=== PATIENT | male | born 1955 | race Caucasian/White ===

== ENCOUNTER 2024-09-18 19:36 | Emergency (ER) | payer OTHER, SELFPAY ==
[2024-09-18 19:39] VITALS: BP 140/88; PULSE 121; RESP 18; TEMP 36.9; O2SAT 94; BMI 23.4
[2024-09-18 23:56] LABS: Basophils # 0.1 10^3/uL (0.0-0.1); Basophils % 0.6 %; Bilirubin Urine Negative (Negative); Blood Urine 1+ (Negative); Eosinophils # 0.1 10^3/uL (0.0-0.8); Glucose Urine UA Negative (Normal); Hematocrit 51.2 % (37-53); Ketones Urine Trace (Negative); Leukocyte Esterase Urine 3+ (Negative); Lymphocytes # 1.9 10^3/uL (0.8-4.8); Mean Corpuscular HGB Conc 32.4 g/dL (30-55); Mean Corpuscular Volume 92.6 fl (82-101); Mean Platelet Volume 10.8 fL (7.4-10.4); Monocytes # 1.1 10^3/uL (0.2-0.9); Monocytes % 12.6 %; Neutrophils # 5.47 10^3/uL (1.8-7.7); Neutrophils % 63.5 %; Nitrate Urine Positive (Negative); Nucleated Red Blood Cells % 0 %; Platelet Count 204 10^3/cmm (157-399); Protein Urine 1+ (Negative); Red Blood Count 5.53 10^6/uL (3.85-5.65); Red Cell Distribution Width 11.9 % (12.1-15.1); Specific Gravity, Urine 1.022 (1.005-1.030); Urine Appearance Cloudy (CLEAR); Urine Color Dark Yellow (Yellow); White Blood Count 8.63 10^3/uL (3.29-11.43); pH Urine 5.5 (5-7)
[2024-09-19 00:03] LABS: Add Urine Microscopic? YES; Bacteria Urine 4+ /hpf; RBC Urine 0-2 /hpf (0-2); Squamous Epithelial Cell Urine 0-5 /hpf (0-5); WBC Urine >100 /hpf (0-5)
--- NOTE | 2024-09-19 00:44 | ED_ITS ---
HPI - Male Genitourinary 2 General: Chief complaint: Urogenital-Male Stated complaint: Luciano patient burn when pee Time Seen by Provider: 09/18/24 23:38 History of Present Illness: 69-year-old [facility] He has a history of urosepsis in the past. He has had 3 days of dysuria, frequency, and urgency. No fever. No vomiting. No belly pain. He states that only a bit of urine comes out. He has some stinging at his urethral meatus. Related Data Previous Rx's ?Medication ?Instructions ?Recorded cefdinir 300 mg capsule 300 mg PO BID #14 caps 09/19 Allergies Allergy/AdvReac Type Severity Reaction Status Date / Time No Known Allergies Allergy Verified 09/18/24 19:47 Physical Exam 2 Const: COMMON NORMALS: no acute distress GENERAL APPEARANCE: cooperative; not ill appearing and not frail appearing HENMT: COMMON NORMALS: normocephalic, atraumatic and Normal external nose present HEAD & SCALP: normocephalic and atraumatic FACE & SINUS: normal facial exam and face symmetric NOSE: Normal external nose present Eye: COMMON NORMALS: Equal, round and reactive pupils present and EOMs intact bilaterally PUPIL: Yes Equal, round and reactive pupils present Neck/C-Spine: GENERAL: Yes trachea midline Chest: CHEST: Yes Symmetrical chest wall rise Resp: COMMON NORMALS: normal respiratory effort, No retractions, No use of accessory muscles and clear to auscultation bilaterally AUSCULTATION: clear to auscultation bilaterally Cardio: COMMON NORMALS: regular rate and regular rhythm RATE: regular rate RHYTHM: regular rhythm GI: COMMON NORMALS: Soft to palpation and non-tender PALPATION: Yes Soft to palpation Extremity: COMMON NORMALS: no pedal edema Neuro: ADRIANO COMA SCALE: document GCS findings Adriano coma scale eye opening: Spontaneous Adriano coma scale verbal response: Orientated Adriano coma scale motor response: Obey commands Adriano coma scale total score: 15 S ENSORY EXAM: Yes extremities (intact) Psych: COMMON NORMALS: speech normal SPEECH: Yes normal speech Skin: COMMON NORMALS: no rashes or lesions noted GENERAL SKIN EXAM: no rashes or lesions noted Course 2 Vital Signs: Vital signs: Vital Signs Temperature 98.4 F 09/18/24 19:39 Pulse Rate 91 09/19/24 01:52 Respiratory Rate 18 09/18/24 19:39 Blood Pressure 154/101 09/19/24 01:52 Pulse Oximetry 96 09/19/24 01:52 Oxygen Delivery Me thod Room Air 09/19/24 01:19 MDM - Male Medical Decision Making Vitals are normal, save slight hypertension. CBC BMP are not remarkable. Urinalysis shows white blood cells greater than 100, 3+ leukocyte esterase and positive nitrates. Will be treated for urinary tract infection. Rocephin given IV here. He will go home on cefdinir. Close outpatient follow-up. Repeat urinalysis as an outpatient. Return for any worsening symptoms despite treatment. Lab Data 09/18/24 23:46 09/18/24 23:46 Laboratory Results WBC 8.63 10^3/uL (3.29-11.43) 09/18/24 23:46 RBC 5.53 10^6/uL (3.85-5.65) 09/18/24 23:46 Hgb 16.60 g/dL (11.27-16.99) 09/18/24 23:46 Hct 51.2 % (37-53) 09/18/24 23:46 MCV 92.6 fl (82-101) 09/18/24 23:46 MCH 30.0 pg (27-33) 09/18/24 23:46 MCHC 32.4 g/dL (30-55) 09/18/24 23:46 RDW 11.9 % (12.1-15.1) L 09/18/24 23:46 Plt Count 204 10^3/cmm (157-399) 09/18/24 23:46 MPV 10.8 fL (7.4-10.4) H 09/18/24 23:46 Neut % (Auto) 63.5 % 09/18/24 23:46 Lymph % (Auto) 22.0 % 09/18/24 23:46 Bay % (Auto) 12.6 % 09/18/24 23:46 Eos % (Auto) 1.0 % 09/18/24 23:46 Baso % (Auto) 0.6 % 09/18/24 23:46 Neut # (Auto) 5.47 10^3/uL (1.8-7.7) 09/18/24 23:46 Lymph # (Auto) 1.9 10^3/uL (0.8-4.8) 09/18/24 23:46 Bay # (Auto) 1.1 10^3/uL (0.2-0.9) H 09/18/24 23:46 Eos # (Auto) 0.1 10^3/uL (0.0-0.8) 09/18/24 23:46 Baso # (Auto) 0.1 10^3/uL (0.0-0.1) 09/18/24 23:46 Nucleated RBC % (auto) 0 % 09/18/24 23:46 Nucleated RBCs # 0.0 /100WBC 09/18/24 23:46 Sodium 138 mmol/L (136-145) 09/18/24 23:46 Potassium 4.0 mmol/L (3.5-5.1) 09/18/24 23:46 Chloride 100 mmol/L (98-107) 09/18/24 23:46 Carbon Dioxide 21 mmol/L (22-29) L 09/18/24 23:46 Anion Gap 21.0 (5-19) H 09/18/24 23:46 BUN 17 mg/dL (8-23) 09/18/24 23:46 Creatinine 1.0 mg/dL (0.7-1.2) 09/18/24 23:46 GFR Calculation 74.1 mL/min (90-130) L 09/18/24 23:46 Glucose 106 mg/dL (65-115) 09/18/24 23:46 Calculated Osmolality 288 mOsm/kg (285-295) 09/18/24 23:46 Calcium 10.0 mg/dL (8.5-10.5) 09/18/24 23:46 Urine Color Dark yellow (Yellow) A 09/18/24 23:46 Urine Appearance Cloudy (CLEAR) A 09/18/24 23:46 Urine pH 5.5 (5-7) 09/18/24 23:46 Ur Specific [place] 1.022 (1.005-1.030) 09/18/24 23:46 Urine Protein 1+ (Negative) A 09/18/24 23:46 Urine Glucose (UA) Negative (Normal) 09/18/24 23:46 Urine Ketones Trace (Negative) 09/18/24 23:46 Urine Blood 1+ (Negative) A 09/18/24 23:46 Urine Nitrate Positive (Negative) A 09/18/24 23:46 Urine Bilirubin Negative (Negative) 09/18/24 23:46 Urine Urobilinogen 2.0 mg/dL (Negative) H 09/18/24 23:46 Ur Leukocyte Esterase 3+ (Negative) A 09/18/24 23:46 Urine RBC 0-2 /hpf (0-2) 09/18/24 23:46 Urine WBC >100 /hpf (0-5) H 09/18/24 23:46 Ur Squamous Epith Cells 0-5 /hpf (0-5) 09/18/24 23:46 Amorphous Sediment Not Reportable 09/18/24 23:46 Urine Bacteria 4+ /hpf (NONE) H 09/18/24 23:46 Hyaline Casts 6.20 /lpf 09/18/24 23:46 No radiology studies performed this visit Discharge Plan Discharge Patient Disposition: Home Clinical Impression: Urinary tract infection Condition: Stable Prescriptions: New cefdinir 300 mg capsule 300 mg PO BID Qty: 14 0RF Discharge Orders: Discharge ED (Routine); Ordered 09/19/24 Ordered By: Esteban Bowles Patient Instructions: Urinary Tract Infection in Men (ED), Opioid Safety, Pain Management Activity Restrictions/Additional Instructions: Antibiotics as directed. Return for fever greater than 100 despite 2-3 more doses of antibiotics, worsening pain, vomiting liquids or medications, other concerning symptoms. See your doctor next week. Call for appointment. Print Language: Swedish Coding Level of Care Code ED Front Office Supervisor for Max Bowers
[2024-09-19 00:47] LABS: Add Urine Culture? Yes
[2024-09-19 00:52] VITALS: BP 135/84; PULSE 88; O2SAT 96
[2024-09-19 01:07] LABS: Blood Urea Nitrogen 17 mg/dL (8-23); Carbon Dioxide 21 mmol/L (22-29); Chloride 100 mmol/L (98-107); Creatinine Clr Calc Pharmacy 70.2786; Glomerular Filtration Rate 74.1 mL/min (90-130); Glucose 106 mg/dL (65-115); Osmolality Calculated 288 mOsm/kg (285-295); Sodium 138 mmol/L (136-145)
[2024-09-19 01:19] VITALS: BP 147/103; PULSE 97; O2SAT 95
[2024-09-19] MEDS: cefTRIAXone 1,000 mg SDV 1000 MG IVP (01:40)
[2024-09-19 01:52] VITALS: BP 154/101; PULSE 91; O2SAT 96
== END 2024-09-19 01:53 | disposition home or self-care (01) ==
PROVIDERS: Emergency Provider Emergency Medicine
DX: N39.0 Urinary tract infection, site not specified (principal)
CPT/HCPCS: 51798; 80048; 81001; 85025; 87077; 87086; 87186; 96374; 99284; J0696